=== PATIENT | male | born 1970 | race Caucasian/White ===

== ENCOUNTER 2016-11-16 13:03 | Inpatient (IN) | payer OTHER ==
[~2016-11-16] VITALS: Ht 157.5 cm; Wt 61.2 kg
[~2016-11-16 13:03] MED LIST: ASPI81CT89 PO; CEPH250C16 PO; GABA100C PO; GLIP10TA3 PO; LISI5TAB18 PO; METF1000 PO; SITA50TA3 PO; TRAM50TA94 PO; VITA20002 PO
[2016-11-16 14:04] VITALS: BP 143/72
--- NOTE | 2016-11-16 15:17 | NUR ---
Patient wheelchair assisted to bed 7 at this time.
[2016-11-16] MEDS ORDERED: NACL 0.9% 1,000 ML IV ONE (15:20)
--- NOTE | 2016-11-16 15:21 | NUR ---
45/M presents to ED for evaluation of right foot pain that started yesterday after stepping on a thorn in [place] three weeks ago. Patient states the pain and swelling started yesterday. Patient unable to ambulate d/t pain to right foot. There is redness to right lower extremitity and right foot, swelling noted and open wound to plantar aspect near the 5th digit. No drainage noted. Patient c/o 10/10 pain, stabbing, constant, severe pain. Patient is AOX4, kazakh speaking. Pt is calm and relaxed at this time.
[2016-11-16 15:32] LABS: HEMATOCRIT 38.7 % (36-52); HEMOGLOBIN 12.7 g/dL (12.0-18.0); MEAN CORPUSCULAR HEMOGLOBIN 30 pg (27-31); MEAN CORPUSCULAR HGB CONC 33 g/dL (33-37); MEAN CORPUSCULAR VOLUME 91 fL (80-94); PLATELET COUNT (AUTO) 379 K/uL (140-450); RED BLOOD CELL COUNT(AUTO) 4.27 MIL/uL (4.20-6.10); RED CELL DISTRIBUTION WIDTH 12.9 % (11.6-13.7); WHITE BLOOD COUNT (AUTO) 18.6 K/uL (4.8-10.8)
--- NOTE | 2016-11-16 15:33 | NUR ---
Patient taken to CT via gurney.
[2016-11-16] MEDS ORDERED: PIPERACILLIN/TAZOBACTAM 3.375 GM in DEXTROSE 5% 50 ML IV ONE (15:35)
[2016-11-16] MEDS ORDERED: VANCOMYCIN 1,000 MG in DEXTROSE 5% 250 ML IV ONE (15:35)
[2016-11-16 15:47] LABS: ANION GAP 11.6 (8-16); CALCIUM 8.7 mg/dL (8.5-10.1); CARBON DIOXIDE 27.9 mmol/L (21-32); CREATININE 0.7 mg/dL (0.6-1.3); POTASSIUM 3.5 mmol/L (3.5-5.1)
[2016-11-16] MEDS ORDERED: PIPERACILLIN/TAZOBACTAM 3.375 GM VIAL IV ONE (15:48)
[2016-11-16] MEDS ORDERED: VANCOMYCIN 1,000 MG VIAL ONE (15:48)
[2016-11-16 15:52] LABS: INR 1.1 (0.8-1.2); PARTIAL THROMBOPLASTIN TIME 27.2 secs (22-35.6)
[2016-11-16 15:53] LABS: ALBUMIN 3.1 g/dL (3.4-5.0); TOTAL BILIRUBIN 0.7 mg/dL (0.0-1.0); TOTAL PROTEIN, SERUM 7.5 g/dL (6.4-8.2)
[2016-11-16 15:54] LABS: BAND % (MANUAL) 2 % (0-8); LYMPHOCYTES % (MANUAL) 17 % (20-46); MONOCYTES % (MANUAL) 8 % (5-12); NEUTROPHILS % (MANUAL) 73 (43-65); PLATELET ESTIMATE ADEQUATE
[2016-11-16] MEDS ORDERED: fentaNYL 0.05 MG/ML VIAL IVP ONE (15:55)
--- NOTE | 2016-11-16 16:05 | NUR ---
Patient being evaluated by physician at bedside.
--- NOTE | 2016-11-16 16:06 | NUR ---
Patient's temp noted at 101.[address] Christensen made aware.
[2016-11-16] MEDS ORDERED: IBUPROFEN 800 MG TAB PO ONE (16:10)
--- NOTE | 2016-11-16 16:24 | NUR ---
Patient noted with relief of pain. Pt reports 0/10 pain. Pt expresses feeling much better. Cooling measures applied. Pt is calm and no signs of distress noted.
[2016-11-16] MEDS ORDERED: ONDANSETRON 4 MG/2 ML VIAL IVP PRN (17:10)
[2016-11-16] MEDS ORDERED: DEXTROSE 50% 50 ML SYR IVP PRN (17:10)
[2016-11-16] MEDS ORDERED: ACETAMINOPHEN 325 MG TAB PO PRN (17:10)
--- NOTE | 2016-11-16 17:13 | NUR ---
Patient appears to be resting comfortably in bed.
[2016-11-16] MEDS ORDERED: VANCOMYCIN PER PHARMACY MC PRN ×2 (17:15→17:45)
--- NOTE | 2016-11-16 17:39 | NUR ---
Patient will be admitted to care of Dr. Carter. Admited to Med/Surg. Will go to room 113. Belongings list completed. Report to Tiffanie WATSON. All patient belongings sent with patient.
[2016-11-16 18:25] VITALS: BP 132/73
--- NOTE | 2016-11-16 18:25 | NUR ---
PT BROUGHT UP FROM ER TO ROOM 113, PT AAOX4, RESP EVEN UNLABORED ON O2 2L NC, SKIN WARM DRY, COLOR WNL, 20G IV TO LEFT FA, VANCOMYCIN INFUSING, SITE CLEAR, PT WITH OPEN WOUND ON BOTTOM OF RIGHT FOOT, SWELLING, DISCOLORATION AND FLUID FILLED BLISTER TO RIGHT PINKY TOE, VITALS SIGNS STABLE, PT ORIENTED TO ROOM AND FLOOR, CALL MOHAN WITH IN REACH, BED LOCKED IN LOW POSITION, WILL CONTINUE TO MONITOR
--- NOTE | 2016-11-16 19:20 | NUR ---
REPORT GIVEN TO LOCKSTITCH LINING SETTER, PT IN STABLE CONDITION
--- NOTE | 2016-11-16 19:30 | NUR ---
ADMITTED 45YEARS OLD MALE FROM ER IN 113, FAMILY AT BEDSIDE. SEE NURSING ADMISSION ASSESSMENT AND HISTORY. ORIENTED TO ROOM AND UNIT ROUTINES. PLAN OF CARE DISCUSSED WITH PATIENT AND FAMILY MEMBER AT BEDSIDE, VERBALIZED UNDERSTANDING WELL.
[2016-11-16] MEDS: NACL 0.9% 1,000 ML IV SCH (20:14)
[2016-11-16] MEDS: BLOOD GLUCOSE MONITORING 1 DEV DEV FS SCH (20:51)
[2016-11-16] MEDS ORDERED: PIPERACILLIN/TAZOBACTAM 3.375 GM in DEXTROSE 5% 50 ML IV SCH ×4 (21:00)
--- NOTE | 2016-11-16 21:00 | NUR ---
DR. LIRIANO AT BEDSIDE FOR SURGICAL CONSULT, ORDERS NOTED AND CARRIED. OUT. WOUND CARE DONE. HS SNACK GIVEN.
[2016-11-16] MEDS: INSULIN LISPRO SLIDING SCALE 100 UNITS/ML VIAL SUBQ PRN (21:06)
[2016-11-16 22:21] LABS: APPEARANCE,URINE CLEAR (CLEAR); BILIRUBIN,URINE NEGATIVE (NEGATIVE); BLOOD, URINE NEGATIVE (NEGATIVE); COLOR,URINE YELLOW (YELLOW); LEUKOCYTE ESTERASE ,URINE NEGATIVE (NEGATIVE); NITRITE, URINE NEGATIVE (NEGATIVE); PROTEIN,URINE TRACE (NEGATIVE); UGLUCOSE 2+ (NEGATIVE); UROBILINOGEN,URINE 0.2 EU/dL (0.2 - 1)
[2016-11-16 22:37] LABS: BACTERIA,URINE None Seen /HPF (None Seen); MUCUS,URINE 1+ /LPF (None Seen); RBC,URINE 0-5 (RARE) /HPF (0-5); SQUAMOUS EPITHELIAL CELL,UR None Seen /LPF (0-3 (FEW)); URINE AMORPHOUS URATE 1+ /HPF (None Seen); WBC,URINE 0-5 (RARE) /HPF (0-5)
[2016-11-16] MEDS ORDERED: PNEUMOCOCCAL VACCINE 23 MCG/0.5 ML VIAL IMVAC SCH (22:50)
[2016-11-16] MEDS ORDERED: COMPOSITE DRESSING TP PRN (22:50)
[2016-11-16] MEDS ORDERED: NACL 0.9% IRR 250 ML BOTTLE IR PRN (22:50)
[2016-11-16] MEDS: PIPER/TAZO 3.375GM/D5W PREMIX 50 ML IV SCH (23:27)
--- NOTE | 2016-11-16 23:48 | NUR ---
CONSULT SIGNED. ADVISE NPO AFTER MIDNIGHT, AMENABLE. CALL LIGHT WITHIN REACH.
[2016-11-17 00:11] VITALS: BP 121/69
--- NOTE | 2016-11-17 00:12 | NUR ---
SLEEPING WELL. NO COMPLAINS. CALL LIGHT WITHIN REACH. AFEBRILE.
[2016-11-17] MEDS ORDERED: VANCOMYCIN 1GM/DEXT 5% PREMIX 200 ML IV SCH (01:00)
[2016-11-17] MEDS: VANCOMYCIN 1GM/DEXT 5% PREMIX 200 ML IV SCH ×2 (04:21→17:13)
[2016-11-17] MEDS: NACL 0.9% 1,000 ML IV SCH ×3 (04:33→23:07)
[2016-11-17] MEDS: MORPHINE SULFATE 2 MG/ML SYR IVP PRN ×5 (04:33→23:08)
[2016-11-17] MEDS: BLOOD GLUCOSE MONITORING 1 DEV DEV FS SCH ×4 (05:54→21:00)
[2016-11-17 06:09] LABS: BASOPHILS # (AUTO) 0.1 K/uL (0.00-0.22); EOSINOPHILS # (AUTO) 0.1 K/uL (0-0.4); EOSINOPHILS % (AUTO) 0.8 % (0.0-4.0); HEMATOCRIT 38.4 % (36-52); HEMOGLOBIN 12.7 g/dL (12.0-18.0); LYMPHOCYTES # (AUTO) 1.2 K/uL (2.0-11.5); MEAN CORPUSCULAR HEMOGLOBIN 30 pg (27-31); MEAN CORPUSCULAR HGB CONC 33 g/dL (33-37); MEAN CORPUSCULAR VOLUME 91 fL (80-94); MONOCYTES # (AUTO) 1.3 K/uL (0.8-1.0); MONOCYTES % (AUTO) 9.7 % (1.7-9.3); NEUTROPHILS % (AUTO) 79.5 % (42.2-75.2); PLATELET COUNT (AUTO) 406 K/uL (140-450); RED BLOOD CELL COUNT(AUTO) 4.21 MIL/uL (4.20-6.10); RED CELL DISTRIBUTION WIDTH 13.2 % (11.6-13.7)
[2016-11-17 06:40] LABS: CALCIUM 8.4 mg/dL (8.5-10.1); CARBON DIOXIDE 30.2 mmol/L (21-32); CREATININE 0.5 mg/dL (0.6-1.3); POTASSIUM 3.2 mmol/L (3.5-5.1)
[2016-11-17 07:03] LABS: WHITE BLOOD COUNT (AUTO) 13.7 K/uL (4.8-10.8)
--- NOTE | 2016-11-17 07:16 | NUR ---
ENDORSED CARE AT BEDSIDE WITH MAMI WATSON, PATIENT IN STABLE CONDITION.
--- NOTE | 2016-11-17 07:16 | NUR ---
RECEIVED PT AWAKE AND SITTING ON BED AAOX4 GUINEAN SPEAKING WITH NO S/S OF RESPIRATORY DISTRESS OR DISCOMFORT. PT COMPLAINED OF PAIN, WILL ADMINISTER NORCO. WITH IV ACCESS ON LEFT FOREARM G20 INFUSING FLUIDS WELL. WITH DRY AND INTACT DRESSING AT RIGHT FOOT. DISCUSSED PLAN OF CARE INTERPRETED BY KAVITHA NAVA, PT VERBALIZED UNDERSTANDING. SAFETY PRECAUTIONS ENFORCED. CALL LIGHT WITHIN REACH, WILL CONTINUE TO MONITOR.
[2016-11-17] MEDS: HYDROcodone/APAP 5/325 MG 1 TAB TAB PO PRN ×2 (07:49→13:12)
[2016-11-17] MEDS: PIPER/TAZO 3.375GM/D5W PREMIX 50 ML IV SCH ×2 (07:49→15:13)
[2016-11-17 08:00] VITALS: BP 142/77
[2016-11-17] MEDS: ENOXAPARIN 40 MG/0.4 ML SYR SUBQ SCH (08:06)
--- NOTE | 2016-11-17 08:06 | NUR ---
LOVENOX WITHHELD DUE TO SCHEDULED DEBRIDEMENT
[2016-11-17] MEDS ORDERED: POTASSIUM CHLORIDE 10 MEQ TABER PO SCH (09:00)
--- NOTE | 2016-11-17 10:16 | NUR ---
PT LEFT UNIT TO OR FOR DEBRIDEMENT ACCOMPANIED BY OR NURSES ON A BED IN STABLE CONDITION
--- NOTE | 2016-11-17 10:24 | NUR ---
PATIENT HAS BEEN SCREENED AND CATEGORIZED HIGH NUTRITION RISK. PATIENT WILL BE SEEN WITHIN 1-2 DAYS OF ADMISSION. 11/17/16-11/18/[address]
--- NOTE | 2016-11-17 10:47 | NUR ---
PT BACK FROM OR, DEBRIDEMENT IS DELAYED, PER DR LIRIANO WILL PERFORM DEBRIDEMENT LATE AFTERNOON
--- NOTE | 2016-11-17 11:49 | NUR ---
INSULIN COVERAGE NOT GIVEN, PT NPO
--- NOTE | 2016-11-17 12:32 | NUR ---
11/17/16 RD INITIAL ASSESSMENT COMPLETED PLEASE REFER TO NUTRITION ASSESSMENT UNDER CARE ACTIVITY FOR ESTIMATED NUTRITIONAL NEEDS. 1. WHEN MEDICALLY FEASIBLE, INITIATE PO DIET: 75G CCHO/MEAL (HIGH CARB) DIET 2. RD TO FOLLOW-UP 2-3 DAYS; HIGH RISK ALDEN JORDAN, SANJAY
--- NOTE | 2016-11-17 12:41 | NUR ---
CM NOTE INITIAL REVIEW SENT TO [facility] FAX# [phone] PH# TARAN [phone]
[2016-11-17] MEDS: NACL 0.9% IRR 250 ML BOTTLE IR SCH (13:17)
[2016-11-17] MEDS: COMPOSITE DRESSING TP SCH (13:18)
--- NOTE | 2016-11-17 13:45 | NUR ---
PT AWAKE SITTING ON BED WITH DAUGHTER AT BEDSIDE. NO S/S OF DISTRESS, WILL CONTINUE TO MONITOR
--- NOTE | 2016-11-17 15:10 | NUR ---
WOUND CARE EVALUATION NOTES: REASON FOR EVALUATION: RIGHT FOOT DFU COMPLETE SKIN ASSESSMENT DONE ON THIS 45 Y/O MALE PATIENT FROM HOME TO [facility], WITH INITIAL DIAGNOSIS OF OSTEOMYELITIS/CELLULITIS OF FOOT. PAST MEDICAL HISTORY INCLUDE DM, ASTHMA AND HYPERTENSION. ALL ABOVE INFORMATION WAS OBTAINED FROM THE ADMISSION H&P. LABS ARE WBC 13.7, H/H 12.7/38.4, GLUCOSE 175, ALBUMIN 3.1, PT/INR 10.0/1.1 AND PTT 27.2. CURRENT MEDS INCLUDE ENOXAPARIN, VANCOMYCIN, ZOSYN, INSULIN, MORPHINE AND NORCO. PATIENT IS AWAKE, ALERT, ORIENTED TO PERSON, PLACE, DATE AND TIME. SKIN WARM TO TOUCH WNL, TOENAILS ARE SLIGHTLY THICKENED, NO EDEMA, WITH HAIR GROWTH AND +3 BILATERAL PEDAL PULSES. URINE AND BOWEL CONTINENT, ABLE TO AMBULATE TO THE RESTROOM CLAIMED. ABLE TO TURN SELF WITHOUT ASSISTANCE. INITIAL PLAN OF CARE AND PRESSURE PREVENTIVE MEASURES DISCUSSED, ABLE TO VERBALIZE UNDERSTANDING. INTEGUMENTARY: RIGHT LATERAL PLANTAR FOOT - DFU - 100% YELLOW RIGHT 5TH DIGIT - PURPLISH DISCOLORATION, COOL TO TOUCH. UNABLE TO MOVE TOE BUT ABLE TO FEEL WHEN TOUCH. RIGHT BASE OF 4TH DIGIT - PURPLISH DISCOLORATION. ABLE TO MOVE TOE AND ABLE TO FEEL WHEN TOUCH RECOMMENDATIONS: -WILL KEEP IT DRY FOR NOW BY COVERING WITH DRY DRESSING. WILL REASSESS POST DEBRIDEMENT. PATIENT IS SCHEDULED FOR DEBRIDEMENT TODAY BY DR. LIRIANO.
--- NOTE | 2016-11-17 15:30 | NUR ---
PT SEEN BY WOUND CARE NURSE.
[2016-11-17 16:00] VITALS: BP 138/79
--- NOTE | 2016-11-17 17:15 | NUR ---
DUE VANCOMYCIN GIVEN PER PHARMACY
[2016-11-17] MEDS ORDERED: fentaNYL 0.05 MG/ML VIAL ONE (18:25)
[2016-11-17] MEDS ORDERED: MIDAZOLAM 2 MG/2 ML VIAL ONE (18:25)
[2016-11-17] MEDS ORDERED: PROPOFOL 200 MG/20 ML VIAL IV ONE (18:28)
--- NOTE | 2016-11-17 18:28 | NUR ---
PT LEFT UNIT TO OR ON A BED ACCOMPANIED BY OR NURSES IN STABLE CONDITION
[2016-11-17] MEDS ORDERED: BUPIVACAINE-MPF/EPI 0.25% 30 ML VIAL INJ ONE (18:39)
[2016-11-17] MEDS ORDERED: BUPIVACAINE-MPF 0.25% 30 ML VIAL INJ ONE (18:40)
[2016-11-17] MEDS ORDERED: HYDROmorphone 1 MG/ML AMP IVP PRN (19:00)
[2016-11-17] MEDS ORDERED: BLOOD GLUCOSE MONITORING 1 DEV DEV FS SCH (19:00)
[2016-11-17] MEDS ORDERED: ONDANSETRON 4 MG/2 ML VIAL IVP PRN (19:00)
--- NOTE | 2016-11-17 19:32 | NUR ---
ENDORSED PT TO ANGELIKA MEAT PASSER IN STABLE CONDITION FOR CONTINUITY OF CARE
--- NOTE | 2016-11-17 19:55 | NUR ---
RECD. FROM OR VIA BED, AWAKE, A/OX4., RESPIRATION EVEN AND UNLABORED. IV OF NS AT 100 ML/HR INFUSING, LEFT FOREARM G20. S/P DEBRIDEMENT OF RIGHT DIABETIC FOOT INFECTION, WITH FASCIOTOMY REPORTED BY OR NURSE. INCISION COVERED WITH DRESSING AND RADHA WRAPPED BANDAGE, DRY AND INTACT. RIGHT TOES, WITH POSITIVE MOVEMENT/SENSATION AND GOOD CAPILLARY REFILL. DENIES PAIN 0/10. VS STABLE. FAMILY AT THE BEDSIDE.
--- NOTE | 2016-11-17 20:20 | NUR ---
ELEVATED RIGHT FOOT ON PILLOWS.
--- NOTE | 2016-11-17 21:00 | NUR ---
Patient's Plan of Care was discussed and reviewed with PLANT TOUR GUIDE: ERWIN
[2016-11-17] MEDS ORDERED: MORPHINE SULFATE 4 MG/ML SYR IVP PRN (22:50)
--- NOTE | 2016-11-17 23:00 | NUR ---
TOLERATED WELL SANDWICH AND APPLE JUICE, NO N/V NOTED.
[2016-11-18] MEDS: PIPER/TAZO 3.375GM/D5W PREMIX 50 ML IV SCH ×3 (00:10→16:30)
[2016-11-18] MEDS: VANCOMYCIN 1GM/DEXT 5% PREMIX 200 ML IV SCH ×2 (01:00→10:24)
--- NOTE | 2016-11-18 02:00 | NUR ---
PT SLEEPING WELL. NO S/S OF ANY DISCOMFORT NOTED.
[2016-11-18] MEDS: NACL 0.9% 1,000 ML IV SCH ×2 (03:53→09:43)
--- NOTE | 2016-11-18 04:00 | NUR ---
SLEEPING COMFORTABLY, VS REMAIN STABLE.
[2016-11-18 06:49] LABS: BASOPHILS % (AUTO) 0.3 % (0.0-2.0); EOSINOPHILS # (AUTO) 0.3 K/uL (0-0.4); EOSINOPHILS % (AUTO) 1.6 % (0.0-4.0); HEMATOCRIT 34.9 % (36-52); HEMOGLOBIN 11.7 g/dL (12.0-18.0); LYMPHOCYTES # (AUTO) 1.5 K/uL (2.0-11.5); LYMPHOCYTES % (AUTO) 9.3 % (20.5-51.1); MEAN CORPUSCULAR HEMOGLOBIN 30 pg (27-31); MEAN CORPUSCULAR HGB CONC 34 g/dL (33-37); MEAN CORPUSCULAR VOLUME 91 fL (80-94); MONOCYTES # (AUTO) 1.4 K/uL (0.8-1.0); MONOCYTES % (AUTO) 8.9 % (1.7-9.3); NEUTROPHILS # (AUTO) 12.8 K/uL (1.8-7.7); NEUTROPHILS % (AUTO) 79.9 % (42.2-75.2); PLATELET COUNT (AUTO) 399 K/uL (140-450); RED BLOOD CELL COUNT(AUTO) 3.85 MIL/uL (4.20-6.10); RED CELL DISTRIBUTION WIDTH 12.9 % (11.6-13.7)
[2016-11-18] MEDS: BLOOD GLUCOSE MONITORING 1 DEV DEV FS SCH ×3 (06:58→17:09)
[2016-11-18] MEDS: INSULIN LISPRO SLIDING SCALE 100 UNITS/ML VIAL SUBQ PRN ×3 (06:59→17:10)
--- NOTE | 2016-11-18 07:00 | NUR ---
DID HIS AM CARE. CONDITION REMAIN STABLE. WILL ENDORSE TO AM NURSE FOR CONTINUITY OF CARE;
[2016-11-18] MEDS: MORPHINE SULFATE 4 MG/ML SYR IVP PRN ×2 (07:15→11:21)
[2016-11-18 07:26] LABS: ANION GAP 15.7 (8-16); CARBON DIOXIDE 23.2 mmol/L (21-32); CREATININE 0.6 mg/dL (0.6-1.3); POTASSIUM 3.9 mmol/L (3.5-5.1)
[2016-11-18 08:00] VITALS: BP 130/72
--- NOTE | 2016-11-18 08:00 | NUR ---
RECEIVED REPORT FROM ANGELIKA WATSON FOR CONTINUITY OF CARE PATIENT AWAKE A/OX4 . NO S/S OF RESP DISTRESS NOTED , NO COMPLAIN OF PAIN ,JUST RECEIVED PAIN MEDS AND PAIN RELIVED. RIGHT FOOT WRAPPED WITH RADHA WRAP S/P DEBRIDEMENT . IV SITE LFA GAUGE 22 INTACT AND PATENT IVF INFUSING WELL. PLAN OF CARE DISCUSSED WITH THE PATIENT VITALS STABLE WILL CONTINUE TO MONITOR.
--- NOTE | 2016-11-18 09:00 | NUR ---
DUE MEDS GIVEN TOLERATED WELL. ATE BREAKFAST GOOD APPETITE , ASSIST PATIENT TO BATHROOM NON-WEIGHT BEARING.
[2016-11-18] MEDS ORDERED: LOV40I SUBQ (09:25)
[2016-11-18] MEDS ORDERED: ZOS3.375I IV (09:25)
[2016-11-18] MEDS ORDERED: ACET-9525 PO (09:25)
[2016-11-18] MEDS ORDERED: ACET-1182 PO (09:25)
[2016-11-18] MEDS: ENOXAPARIN 40 MG/0.4 ML SYR SUBQ SCH (09:49)
--- NOTE | 2016-11-18 10:15 | NUR ---
DR LIRIANO CHANGE DRESSING ,NO DRAINAGE NOTED AT THIS TIME.
--- NOTE | 2016-11-18 10:33 | NUR ---
FAXED CONCURRENT REVIEW TO [facility] [phone] PHONE TARAN [phone] SPOKE WITH TARAN AND INFORMED HER OF ORDER FOR SNF. SHE SAID ALSO TRY [facility] BACKUP. DIAZ SENT INFORMATION.
--- NOTE | 2016-11-18 12:10 | NUR ---
BLOOD SUGAR 289 SLIDING SCALE COVERAGE 6 UNITS HUMALOG GIVEN.
--- NOTE | 2016-11-18 12:14 | NUR ---
SS NOTE: PER MARCELL FROM [facility] ([phone]), PT CAN GO TO ROOM 204A ANYTIME AFTER 1600. Addendum: 11/18/16 at 1241 by Nelsy Swartz SS I SPOKE WITH PT BEDSIDE WITH SHIRLEY CELESTIN AND KAVITHA BARBER TO TRANSLATE, PT IS IN AGREEMENT WITH GOING TO [facility] UPON DISCHARGE.
--- NOTE | 2016-11-18 13:16 | NUR ---
CALLED [facility] AND SET UP [facility]SPORT FOR 5:30P.Tong SANTA FROM [facility] [id number]. TYLER WATSONJEWEL BLOCKER AND SAWYER NURSE AWARE.
[2016-11-18] MEDS: COMPOSITE DRESSING TP SCH (13:24)
[2016-11-18] MEDS: NACL 0.9% IRR 250 ML BOTTLE IR SCH (13:24)
[2016-11-18 13:25] VITALS: BP 131/70
[2016-11-18 16:00] VITALS: BP 131/70
[2016-11-18] MEDS: HYDROcodone/APAP 5/325 MG 1 TAB TAB PO PRN (16:30)
--- NOTE | 2016-11-18 16:30 | NUR ---
BLOOD SUGAR 278 SLIDING SCALE COVERAGE 6 UNITS HUMALOG GIVEN , DISCHARGE INSTRUCTION GIVEN VERBALIZED UNDERSTANDING. VITALS STABLE
--- NOTE | 2016-11-18 18:00 | NUR ---
DISCHARGE INSTRUCTION GIVEN VERBALIZED UNDERSTANDING , D/C PATIENT VIA AMBULANCE TO [facility], STABLE CONDITION UPON DISCHARGE.
== END 2016-11-18 18:30 | DRG 314 ==
LOC: MED 13:03 → MTU 17:14 → MED 17:39
PROVIDERS: ADMIT Hospitalist; ATTEND Hospitalist
PROC: 0Q9N0ZZ Drainage of Right Metatarsal, Open Approach (ICD-10-PCS; 2016-11-17)
PROC: 0J8Q0ZZ Division of Right Foot Subcutaneous Tissue and Fascia, Open Approach (ICD-10-PCS; 2016-11-17)
PROC: 0JBQ0ZZ Excision of Right Foot Subcutaneous Tissue and Fascia, Open Approach (ICD-10-PCS; principal; 2016-11-17 18:45)
DX: E11.69 Type 2 diabetes mellitus with other specified complication (principal); M86.8X7 Other osteomyelitis, ankle and foot; M72.6 Necrotizing fasciitis; E11.628 Type 2 diabetes mellitus with other skin complications; E87.1 Hypo-osmolality and hyponatremia; L03.115 Cellulitis of right lower limb; L08.89 Other specified local infections of the skin and subcutaneous tissue; L02.611 Cutaneous abscess of right foot; B96.89 Other specified bacterial agents as the cause of diseases classified elsewhere; I10 Essential (primary) hypertension; J45.909 Unspecified asthma, uncomplicated; E87.6 Hypokalemia; Z83.3 Family history of diabetes mellitus
CPT/HCPCS: 36415; 71010; 73630; 73700; 80048; 80053; 80202; 81001; 82948; 83880; 84484; 85025; 85610; 85730; 87040; 87070; 87075; 87081; 87186; 87205; 93005; 93925; 96365; 96368; 96375; 99285; J1650; J1815; J2250; J2270; J2543; J2704; J3010; J3370; J3490; J7030; Q0092

== ENCOUNTER 2016-11-25 15:47 | Inpatient (IN) | payer OTHER ==
[~2016-11-25] VITALS: Ht 157.5 cm; Wt 59.9 kg
[~2016-11-25 15:47] MED LIST changes: +ACET-1182 PO; +ACET-9525 PO; -CEPH250C16 PO; -GABA100C PO; -LISI5TAB18 PO; +LOV40I SUBQ; -SITA50TA3 PO; -TRAM50TA94 PO; -VITA20002 PO; +ZOS3.375I IV
[2016-11-25 16:15] VITALS: BP 119/72
--- NOTE | 2016-11-25 19:37 | NUR ---
PT TAKEN TO OF
--- NOTE | 2016-11-25 19:38 | NUR ---
46Y M BIB DAUGHT (ADELA) BY WHEELCHAIR C/O RIGHT PINKY TOE INFECTION S/P MANUAL WOOD CHIP REMOVAL BY PT. PT STATES HE WAS IN [place] WHEN A PIECE OF WOOD CHIP GOT STUCK INTO HIS FOOT X 1 MONTH AGO. HE HAS HX DM, BS 190 AT TRIAGE. 24G IV ESTABLISHED BY [facility] TO THE RIGHT HAND. PT REQUESTING ABX TX WHILE HE WAITS FOR RIGHT PINKY TOE AMPUTATION. PT DENIES ANY N/V/D/, CP, OR SOB AT THE MOMENT. NKA 02/24 PAIN
--- NOTE | 2016-11-25 20:14 | NUR ---
Dr. Pizarro evaluating patient
[2016-11-25] MEDS ORDERED: VANCOMYCIN 1GM/DEXT 5% PREMIX 200 ML IV ONE ×2 (20:15→22:00)
[2016-11-25] MEDS ORDERED: VANCOMYCIN PER PHARMACY MC PRN ×2 (20:15→20:25)
[2016-11-25] MEDS ORDERED: PIPERACILLIN/TAZOBACTAM 3.375 GM in DEXTROSE 5% 50 ML IV ONE (20:15)
--- NOTE | 2016-11-25 20:15 | NUR ---
Pt report given to DAMI WATSON. Transfer of care at this time.
[2016-11-25] MEDS ORDERED: ACETAMINOPHEN 325 MG TAB PO PRN (20:25)
--- NOTE | 2016-11-25 20:30 | NUR ---
PT MOVED TO BED 6
[2016-11-25 20:33] LABS: BASOPHILS # (AUTO) 0.1 K/uL (0.00-0.22); BASOPHILS % (AUTO) 0.6 % (0.0-2.0); EOSINOPHILS # (AUTO) 0.2 K/uL (0-0.4); EOSINOPHILS % (AUTO) 1.6 % (0.0-4.0); HEMATOCRIT 37.8 % (36-52); HEMOGLOBIN 12.3 g/dL (12.0-18.0); LYMPHOCYTES # (AUTO) 1.8 K/uL (2.0-11.5); LYMPHOCYTES % (AUTO) 18.1 % (20.5-51.1); MEAN CORPUSCULAR HEMOGLOBIN 30 pg (27-31); MEAN CORPUSCULAR HGB CONC 32 g/dL (33-37); MEAN CORPUSCULAR VOLUME 92 fL (80-94); MONOCYTES # (AUTO) 0.6 K/uL (0.8-1.0); MONOCYTES % (AUTO) 6.3 % (1.7-9.3); NEUTROPHILS % (AUTO) 73.4 % (42.2-75.2); PLATELET COUNT (AUTO) 712 K/uL (140-450); RED BLOOD CELL COUNT(AUTO) 4.14 MIL/uL (4.20-6.10); RED CELL DISTRIBUTION WIDTH 12.6 % (11.6-13.7); WHITE BLOOD COUNT (AUTO) 9.7 K/uL (4.8-10.8)
[2016-11-25 20:45] LABS: ANION GAP 10.3 (8-16); CALCIUM 9.1 mg/dL (8.5-10.1); CARBON DIOXIDE 30.9 mmol/L (21-32); CREATININE 0.8 mg/dL (0.6-1.3); POTASSIUM 4.2 mmol/L (3.5-5.1)
[2016-11-25 20:51] LABS: ALBUMIN 2.8 g/dL (3.4-5.0); TOTAL BILIRUBIN 0.3 mg/dL (0.0-1.0)
[2016-11-25] MEDS: PIPERACILLIN/TAZOBACTAM 2.25 GM in DEXTROSE 5% 50 ML IV SCH (21:00)
[2016-11-25 21:11] LABS: INR 1.2 (0.8-1.2)
--- NOTE | 2016-11-25 21:18 | NUR ---
Pt report given to JOELLE WATSON. Transfer of care at this time.WILL DOCUMENT REASESS TIME FOR BHARATHI.
[2016-11-25] MEDS ORDERED: PIPERACILLIN/TAZOBACTAM 3.375 GM VIAL IV ONE (21:21)
--- NOTE | 2016-11-25 21:25 | NUR ---
Patient will be admitted to care of [facility]. Admited to MED/SURG. Will go to [id number]. Belongings list completed. Report to .
--- NOTE | 2016-11-25 21:30 | NUR ---
RECEIVED FROM ER PER VALE AWAKE AND ALERT. NO SOB. DENIES ANY PAIN AT THIS TIME. ABLE TO UNDERSTAND A LITTLE OF CYMRAES. A/O X 4. ROM X 4. CLEAR SPEECH. DX. OF RIGHT TOE GANGRENE. NOTED BLACK IN COLOR. ORIENTED TO CALL LIGHT FOR HELP AND USE CARE PLANS DISCUSSED WITH HIM IN [place]. PT. BEEN HERE STATED AND KNOWS THE IN AND OUT OF USING CALL LIGHT. TV ON AND ABLE TO USE CALL LIGHT WELL. IVF SITE TO RIGHT HAND #24. AFEBRILE.
[2016-11-25] MEDS ORDERED: VANCOMYCIN 1,000 MG VIAL ONE (22:37)
[2016-11-25] MEDS: MORPHINE SULFATE 2 MG/ML SYR IVP PRN (22:44)
--- NOTE | 2016-11-25 22:45 | NUR ---
BLOOD SUGAR CHECK PER FINGERSTICK WAS 217. COVERED WITH HUMALOG INSULIN ORDERED. VERBALIZES WELL. CALL LIGHT WITH IN REACH. UNDERSTANDS A LITTLE BIT OF LATVIAN. ABLE TO VERBALIZE SIMPLE NEEDS. AFEBRILE.
[2016-11-25] MEDS: BLOOD GLUCOSE MONITORING 1 DEV DEV FS SCH (22:46)
[2016-11-25] MEDS: NACL 0.9% 1,000 ML IV SCH (22:46)
[2016-11-25] MEDS: INSULIN LISPRO SLIDING SCALE 100 UNITS/ML VIAL SUBQ PRN (22:47)
[2016-11-25 23:56] VITALS: BP 119/72
--- NOTE | 2016-11-26 01:00 | NUR ---
5TH TOE RIGHT FOOT OPEN WOUND CLEANSED WITH NS AND KEPT IT OPEN TO AIR. PT. STATED THAT HE GOT A WOOD SPLINTER IN [place] AND THEN IT JUST BECAME BLACK IN COLOR. PT. DIABETIC. HEALTH TEACHING ABOUT DIABETES DISCUSSED WITH HIM.
--- NOTE | 2016-11-26 01:33 | NUR ---
SLEEPING AT THIS TIME . CALL LIGHT WITH IN REACH. NO SOB. NO RESTLESSNESS AT THIS TIME.
[2016-11-26] MEDS ORDERED: PIPERACILLIN/TAZOBACTAM 2.25 GM VIAL IV ONE (04:44)
[2016-11-26] MEDS: PIPERACILLIN/TAZOBACTAM 2.25 GM in DEXTROSE 5% 50 ML IV SCH (04:51)
[2016-11-26] MEDS: NACL 0.9% 1,000 ML IV SCH ×3 (06:05→16:23)
[2016-11-26] MEDS: BLOOD GLUCOSE MONITORING 1 DEV DEV FS SCH ×4 (06:05→20:24)
[2016-11-26] MEDS: INSULIN LISPRO SLIDING SCALE 100 UNITS/ML VIAL SUBQ PRN ×4 (06:06→20:28)
[2016-11-26 06:09] LABS: BASOPHILS # (AUTO) 0.1 K/uL (0.00-0.22); EOSINOPHILS # (AUTO) 0.2 K/uL (0-0.4); EOSINOPHILS % (AUTO) 2.4 % (0.0-4.0); HEMOGLOBIN 11.6 g/dL (12.0-18.0); LYMPHOCYTES # (AUTO) 1.8 K/uL (2.0-11.5); MEAN CORPUSCULAR HEMOGLOBIN 31 pg (27-31); MEAN CORPUSCULAR HGB CONC 34 g/dL (33-37); MEAN CORPUSCULAR VOLUME 90 fL (80-94); MONOCYTES # (AUTO) 0.9 K/uL (0.8-1.0); MONOCYTES % (AUTO) 9.7 % (1.7-9.3); NEUTROPHILS # (AUTO) 5.8 K/uL (1.8-7.7); NEUTROPHILS % (AUTO) 65.9 % (42.2-75.2); PLATELET COUNT (AUTO) 635 K/uL (140-450); RED BLOOD CELL COUNT(AUTO) 3.77 MIL/uL (4.20-6.10); RED CELL DISTRIBUTION WIDTH 12.6 % (11.6-13.7); WHITE BLOOD COUNT (AUTO) 8.8 K/uL (4.8-10.8)
[2016-11-26 06:31] LABS: ALBUMIN 2.4 g/dL (3.4-5.0); ANION GAP 11.4 (8-16); CALCIUM 8.7 mg/dL (8.5-10.1); CARBON DIOXIDE 28.9 mmol/L (21-32); CREATININE 0.7 mg/dL (0.6-1.3); POTASSIUM 4.3 mmol/L (3.5-5.1); TOTAL BILIRUBIN 0.3 mg/dL (0.0-1.0); TOTAL PROTEIN, SERUM 6.9 g/dL (6.4-8.2)
--- NOTE | 2016-11-26 07:43 | NUR ---
SLEPT WELL THIS SHIFT. ENDORSED TO THE NEXT RN FOR CONTINUITY OF CARE AWAKE AND ALERT.
--- NOTE | 2016-11-26 07:44 | NUR ---
PT AWAKE AND ALERT AND ORIENTED X4, NO SIGNS OF ACUTE DISTRESS, BREATHING EVEN AND UNLABORED BILATERALLY, BOWEL SOUNDS ACTIVE IN ALL 4 QUADRANTS NO ABDOMINAL DISTENTION, AMBULATORY WITH ASSIST, BOWEL AND BLADDER CONTINENCE, SKIN INTACT WITH BLACK RT 5TH TOE WITH WOUND, IV LINE PATENT WITH NO SIGNS OF REDNESS, BED IN LOW POSITION WITH BILATERAL HALF SIDE RAILS UP, CALL LIGHT WITHIN REACH.
[2016-11-26 08:00] VITALS: BP 135/76
[2016-11-26] MEDS ORDERED: VANCOMYCIN 1GM/DEXT 5% PREMIX 200 ML IV SCH (08:00)
[2016-11-26] MEDS ORDERED: VANCOMYCIN 1,000 MG in NACL 0.9% 250 ML IV SCH (08:00)
[2016-11-26] MEDS: ASPIRIN 81 MG TAB.CHEW PO SCH (08:05)
--- NOTE | 2016-11-26 09:53 | NUR ---
PATIENT HAS BEEN SCREENED AND CATEGORIZED HIGH NUTRITION RISK. PATIENT WILL BE SEEN WITHIN 1-2 DAYS OF ADMISSION. 11/26/16-11/27/[address]
--- NOTE | 2016-11-26 11:20 | NUR ---
CM NOTE INITIAL REVIEW SENT TO [facility] FAX# [phone] PH# TARAN [phone]
[2016-11-26] MEDS: PIPER/TAZO 3.375GM/D5W PREMIX 50 ML IV SCH ×2 (12:42→20:25)
[2016-11-26] MEDS: NACL 0.9% IRR 250 ML BOTTLE IR SCH (12:46)
[2016-11-26] MEDS ORDERED: PIPER/TAZO 2.25GM/D5W PREMIX 50 ML IV SCH (13:00)
[2016-11-26 15:52] VITALS: BP 137/85
[2016-11-26] MEDS: VANCOMYCIN 1GM/DEXT 5% PREMIX 200 ML IV SCH (16:07)
--- NOTE | 2016-11-26 18:40 | NUR ---
SPOKE WITH DR CAMPOVERDE TO CLARIFY DIET ORDER, WAS TOLD TO PAGE DR LIRIANO. PAGED DR LIRIANO, WILL AWAIT RESPONSE.
--- NOTE | 2016-11-26 19:01 | NUR ---
PT AWAKE AND ALERT, NO SIGNS OF ACUTE DISTRESS, BREATHING EVEN AND UNLABORED BILATERALLY, WILL ENDORSE TO COMPUTER SCIENCE INTERN NURSE FOR CONTINUITY OF CARE.
--- NOTE | 2016-11-26 19:06 | NUR ---
PT AWAKE AND ALERT, NO SIGNS OF ACUTE DISTRESS. ENDORSED TO SOCK EXAMINER NURSE FOR CONTINUITY OF CARE.
--- NOTE | 2016-11-26 19:30 | NUR ---
RECEIVED FROM AM RN IN BED WATCHING TV. NO SOB. DENIES PAIN AT THIS TIME. A/O X 4. DX. OF GANGRENE TO 5TH TOE RIGHT FOOT. ABLE TO VERBALIZE NEEDS WELL. FAMILY MEMBER IN VISITING. NO COMPLAINTS DONE. IVF SITE TO RFA#[address] AND PATENT. CALL LIGHT WITH IN REACH. CARE PLAN FOR THE NIGHT DISCUSSED WITH PT.
--- NOTE | 2016-11-26 19:45 | NUR ---
TALKED WITH MD LIRIANO ON THE PHONE TO INFORM HIM THAT PT. ATE FOR DINNER AROUND 1800 RT Jorge ESQUIVEL CALLED EARLIER THAT HE IS COMING AT 2100 TO DO AN AMPUTATION .
--- NOTE | 2016-11-26 20:00 | NUR ---
NEW IVF LINE INSERTED BY [facility] NURSE JODY TO RIGHT FOREARM #22 RT PREVIOUS LINE DISCONTINUED BY PT.
--- NOTE | 2016-11-26 21:15 | NUR ---
OH WITH NEW ORDERS RE:DIET AND TO OBTAIN CONSENT FOR AMPUTATION OF RIGHT FOOT 5TH TOE WITH DEBRIDEMENT.
--- NOTE | 2016-11-26 21:52 | NUR ---
PT. SEEN BY HAYLEY ESQUIVEL AND AMPUTATION FOR RIGHT 5TH TOE AND DEBRIDEMENT PLANS FOR TOMORROW.
[2016-11-27] MEDS: VANCOMYCIN 1GM/DEXT 5% PREMIX 200 ML IV SCH ×3 (00:16→09:30)
[2016-11-27] MEDS: NACL 0.9% IRR 250 ML BOTTLE IR SCH ×2 (00:21→13:00)
[2016-11-27 00:47] VITALS: BP 121/68
--- NOTE | 2016-11-27 00:54 | NUR ---
SLEEPING AT THIS TIME. AWARE THAT HE IS NPO . DAUGHTER ADVISED HIM EARLIER IN [place] ABOUT BEING NO FOOD AT THIS TIME RT OH, WILL AMPUTATE RIGHT 5TH TOE AND DEBRIDEMENT TOMORROW.
[2016-11-27] MEDS: NACL 0.9% 1,000 ML IV SCH ×3 (02:23→22:23)
[2016-11-27] MEDS: MORPHINE SULFATE 2 MG/ML SYR IVP PRN ×4 (03:47→20:13)
--- NOTE | 2016-11-27 04:54 | NUR ---
PT. SLEEPING. NO RESTLESSNESS . RIGHT FOREARM#22 IVF SITE INTACT ANDNO INFILTRATION .
[2016-11-27] MEDS: PIPER/TAZO 3.375GM/D5W PREMIX 50 ML IV SCH ×3 (05:32→21:43)
[2016-11-27] MEDS: BLOOD GLUCOSE MONITORING 1 DEV DEV FS SCH ×5 (06:23→21:42)
--- NOTE | 2016-11-27 07:32 | NUR ---
PT. REMINDED NPO. "OK" ENDORSED TO THE NEXT RN FOR CONTINUITY OF CARE AWAKE AND ALERT. VERBALIZING WELL. YEMENI SPEAKING.
--- NOTE | 2016-11-27 07:35 | NUR ---
REPORT RECEIVED FROM DIRECTOR BUILDING, PT AWAKE ALERT, RESTING QUIETLY IN NAD, RESP EVEN UNLABORED ON ROOM AIR, R PINKY TOE BLACK, WITH OPEN WOUNDS, OPEN TO AIR, REQUESTS PAIN MED, WILL MEDICATE PER ORDER, PLAN OF CARE REVIEWED, PT AWARE OF NPO, CALL MOHAN WITHIN REACH, OTHER SAFETY MEASURES MET.
[2016-11-27 07:59] VITALS: BP 145/81
[2016-11-27 08:11] LABS: BASOPHILS # (AUTO) 0.1 K/uL (0.00-0.22); BASOPHILS % (AUTO) 0.7 % (0.0-2.0); EOSINOPHILS # (AUTO) 0.2 K/uL (0-0.4); HEMATOCRIT 35.8 % (36-52); HEMOGLOBIN 11.8 g/dL (12.0-18.0); LYMPHOCYTES # (AUTO) 1.6 K/uL (2.0-11.5); LYMPHOCYTES % (AUTO) 21.5 % (20.5-51.1); MEAN CORPUSCULAR HEMOGLOBIN 30 pg (27-31); MEAN CORPUSCULAR HGB CONC 33 g/dL (33-37); MEAN CORPUSCULAR VOLUME 91 fL (80-94); MONOCYTES # (AUTO) 0.7 K/uL (0.8-1.0); MONOCYTES % (AUTO) 8.8 % (1.7-9.3); PLATELET COUNT (AUTO) 698 K/uL (140-450); RED BLOOD CELL COUNT(AUTO) 3.95 MIL/uL (4.20-6.10); RED CELL DISTRIBUTION WIDTH 12.8 % (11.6-13.7); WHITE BLOOD COUNT (AUTO) 7.6 K/uL (4.8-10.8)
[2016-11-27] MEDS: ASPIRIN 81 MG TAB.CHEW PO SCH (09:00)
[2016-11-27 09:18] LABS: ANION GAP 12.4 (8-16); CARBON DIOXIDE 27.6 mmol/L (21-32); CREATININE 0.8 mg/dL (0.6-1.3)
--- NOTE | 2016-11-27 09:30 | NUR ---
PT AND FAMILY INFORMED OF SCHEDULE FOR SURGERY AT 11AM, PREOP CHECK LIST DONE, PT REMAINS NPO SINCE LAST NIGHT, ALL CLOTHING AND JEWELRY RMOVED. CALL MOHAN WITHIN REACH, FAMILY AT BEDSIDE, WILL CONTINUE TO MONITOR
--- NOTE | 2016-11-27 10:42 | NUR ---
PT TO OR IN HOSPITAL BED AT THIS TIME.
[2016-11-27] MEDS ORDERED: LABETALOL 100 MG/20 ML VIAL IVP ONE (11:33)
[2016-11-27] MEDS ORDERED: MIDAZOLAM 2 MG/2 ML VIAL ONE (11:47)
[2016-11-27] MEDS ORDERED: KETAMINE 500 MG/5 ML VIAL ONE (11:47)
[2016-11-27] MEDS ORDERED: LIDOCAINE 1% 50 ML ONE (11:48)
[2016-11-27] MEDS ORDERED: HYDROmorphone 1 MG/ML AMP IVP PRN (12:25)
[2016-11-27] MEDS ORDERED: ONDANSETRON 4 MG/2 ML VIAL IVP PRN (12:25)
[2016-11-27] MEDS ORDERED: BLOOD GLUCOSE MONITORING 1 DEV DEV FS SCH (13:00)
[2016-11-27 13:10] VITALS: BP 128/78
--- NOTE | 2016-11-27 13:10 | NUR ---
PT BACK FROM PACU IN HOSPITAL BED, REPORT RECEIVED FROM PACU NURSE, PT AWAKE ALERT, RESP EVEN UNLABORED ON ROOM AIR, VSS, RIGHT FOOT WITH BULKY DRESSING CDI, FOOT ELEVATED ON PILLOW, PT C/O PAIN 02/24, WILL MEDICATE, SON AT BEDSIDE, PT REORIENTED TO ROOM AND FLOOR, CALL MOHAN WITHIN REACH WILL CONTINUE TO MONITOR.
[2016-11-27 13:25] VITALS: BP 125/75
[2016-11-27] MEDS: ONDANSETRON 4 MG/2 ML VIAL IVP PRN (15:08)
--- NOTE | 2016-11-27 15:08 | NUR ---
EMESIS X1, CLEAR LIQ, ZOFRAN GIVEN PER ORDER, RESP EVEN UNLABORED, STATES PAIN IS NOW IMPROVED, WILL CONTINUE TO MONITOR.
[2016-11-27 16:00] VITALS: BP 143/77
[2016-11-27] MEDS: VANCOMYCIN 750 MG in DEXTROSE 5% 250 ML IV SCH (16:16)
[2016-11-27] MEDS: INSULIN LISPRO SLIDING SCALE 100 UNITS/ML VIAL SUBQ PRN ×2 (17:10→22:20)
--- NOTE | 2016-11-27 18:20 | NUR ---
PT RESTING QUIETLY IN NAD, RESP EVEN UNLABORED ON ROOM KATHY, DENIES PAIN OR DISCOMFORT, VIVIAN PO WITHOUT VOMITING, DAUGHTER AT BEDSIDE, IVF CONTINUES, SITE CLEAR, CALL MOHAN WITHIN REACH, WILL CONTINUE TO MONITOR.
--- NOTE | 2016-11-27 19:30 | NUR ---
RECEIVED REPORT FROM DAY SHIFT NURSE. PT DAUGHTER AT BEDSIDE. PT AOX4, MALTESE SPEAKING, ABLE TO VERBALIZE NEEDS, RESTING IN BED. PT C/O PAIN, SEE PAIN ASSESSMENT. WILL ADMINISTER PAIN MED ORDERED. PT DENIES CP, SOB OR S/S OF ACUTE DISTRESS. DRESSING TO RIGHT FOOT NOTED, CLEAN DRY AND INTACT. ELEVATED WITH PILLOWS. IV ACCESS ASYMPTOMATIC, PATENT AND INTACT. IVF INFUSING WELL. DISCUSSED AND REVIEWED PLAN OF CARE WITH PT, PT VERBALIZES UNDERSTANDING. SAFETY MEASURES ENSURED. CALL LIGHT WITHIN REACH. WILL CONTINUE TO MONITOR.
--- NOTE | 2016-11-27 19:30 | NUR ---
REPORT GIVEN TO CLOTHING TRADES WORKERS, PT IN STABLE CONDITION
--- NOTE | 2016-11-27 21:45 | NUR ---
IV ZOSYN ADMINISTERED WITH EDUCATION. PT VERBALIZES UNDERSTANDING. IVF INFUSING WELL. ALL NEEDS MET. SAFETY MEASURES ENSURED.
[2016-11-28] VITALS: BP 113/60
--- NOTE | 2016-11-28 00:15 | NUR ---
PATIENT SLEEPING IN BED NO DISTRESS NEEDS MET.
[2016-11-28] MEDS: VANCOMYCIN 750 MG in DEXTROSE 5% 250 ML IV SCH ×4 (00:25→21:30)
[2016-11-28] MEDS: MORPHINE SULFATE 2 MG/ML SYR IVP PRN ×3 (00:25→21:59)
[2016-11-28] MEDS: ONDANSETRON 4 MG/2 ML VIAL IVP PRN (00:38)
[2016-11-28] MEDS: NACL 0.9% 1,000 ML IV SCH ×3 (00:39→21:40)
--- NOTE | 2016-11-28 00:40 | NUR ---
ADMINISTERED IV VANCOMYCIN PER PROTOCOL WITH EDUCATION. PT VERBALIZES UNDERSTANDING. PT TOLERATED WELL. PT C/O PAIN, SEE PAIN ASSESSMENT. ADMINISTERED PAIN MEDICATION ORDERED. PT C/O NAUSEA, EMESIS BAG PROVIDED, ZOFRAN ADMINISTERED. WILL CONTINUE TO MONITOR.
[2016-11-28] MEDS: NACL 0.9% IRR 250 ML BOTTLE IR SCH ×2 (01:00→13:00)
--- NOTE | 2016-11-28 01:00 | NUR ---
WOUND TREATMENT HELD DUE TO S/P R 5TH TOE AMPUTATION. DRESSING CLEAN, DRY AND INTACT. PT SLEEPING AT THIS TIME. ALL NEEDS MET. SAFETY MEASURES ENSURED. CALL LIGHT WITHIN REACH. WILL CONTINUE TO MONITOR.
[2016-11-28] MEDS: PIPER/TAZO 3.375GM/D5W PREMIX 50 ML IV SCH ×3 (05:34→20:25)
--- NOTE | 2016-11-28 05:35 | NUR ---
IVF INFUSING WELL. ALL NEEDS MET. CONDITION STABLE. SAFETY MEASURES ENSURED. CALL LIGHT WITHIN REACH. WILL CONTINUE TO MONITOR.
[2016-11-28] MEDS: BLOOD GLUCOSE MONITORING 1 DEV DEV FS SCH ×4 (06:18→21:29)
[2016-11-28] MEDS: INSULIN LISPRO SLIDING SCALE 100 UNITS/ML VIAL SUBQ PRN ×3 (06:26→16:53)
[2016-11-28 07:16] LABS: BASOPHILS # (AUTO) 0.1 K/uL (0.00-0.22); BASOPHILS % (AUTO) 0.6 % (0.0-2.0); EOSINOPHILS # (AUTO) 0.1 K/uL (0-0.4); EOSINOPHILS % (AUTO) 1.5 % (0.0-4.0); HEMOGLOBIN 11.2 g/dL (12.0-18.0); LYMPHOCYTES # (AUTO) 1.7 K/uL (2.0-11.5); LYMPHOCYTES % (AUTO) 18.5 % (20.5-51.1); MEAN CORPUSCULAR HEMOGLOBIN 31 pg (27-31); MEAN CORPUSCULAR HGB CONC 34 g/dL (33-37); MEAN CORPUSCULAR VOLUME 90 fL (80-94); MONOCYTES # (AUTO) 0.9 K/uL (0.8-1.0); MONOCYTES % (AUTO) 10.3 % (1.7-9.3); NEUTROPHILS # (AUTO) 6.1 K/uL (1.8-7.7); NEUTROPHILS % (AUTO) 69.1 % (42.2-75.2); PLATELET COUNT (AUTO) 693 K/uL (140-450); RED BLOOD CELL COUNT(AUTO) 3.66 MIL/uL (4.20-6.10); RED CELL DISTRIBUTION WIDTH 12.8 % (11.6-13.7); WHITE BLOOD COUNT (AUTO) 8.9 K/uL (4.8-10.8)
--- NOTE | 2016-11-28 07:31 | NUR ---
ENDORSED PLAN OF CARE TO DAY SHIFT NURSE. CONDITION STABLE.
--- NOTE | 2016-11-28 07:32 | NUR ---
REPORT RECEIVED FROM REHANGER, PT AWAKE ALERT X4, RESP EVEN UNLABORED ON ROOM AIR, IV SITE CLEAR, INFUSING WELL, DENIES PAIN OR DISCOMFORT, BULKY DRESSING ON RIGHT FOOT CDI, PLAN OF CARE DISCUSSED, DENIES ANY IMMEDIATE NEEDS, CALL MOHAN WITHIN REACH, BED LOCKED IN LOW POSITION, WILL CONTINUE TO MONITOR.
[2016-11-28 08:00] VITALS: BP 123/80
--- NOTE | 2016-11-28 08:30 | NUR ---
PT SLEEPING QUIETLY IN NAD, VANCO RESULT NOT READY DUE TO MACHINE NOT WORKING PER LAB, WILL HOLD VANCO UNTIL TROPH LEVEL IS RESULTED. CALL BEL WITHIN REACH, BED LOCKED IN LOW POSITION, WILL CONTINUE TO [facility].
[2016-11-28 08:40] LABS: ANION GAP 12.6 (8-16); CALCIUM 8.7 mg/dL (8.5-10.1); CARBON DIOXIDE 29.1 mmol/L (21-32); CREATININE 0.8 mg/dL (0.6-1.3); POTASSIUM 3.7 mmol/L (3.5-5.1)
[2016-11-28] MEDS: ASPIRIN 81 MG TAB.CHEW PO SCH (10:26)
--- NOTE | 2016-11-28 10:29 | NUR ---
PER LAB, MACHINE IS NOT WORKING, VANCOMYCIN TROPH LEVEL RESULT STILL NOT READY. WILL CALL BACK WITH RESULT WHEN MACHINE IS FIXED.
--- NOTE | 2016-11-28 12:30 | NUR ---
DUE ANTIBIOTIC STARTED IV SITE CLEAR, INSULIN 8U FOR BS 308, PT RESTING QUIETLY IN NAD, RESP EVEN UNLABORED, DENIES PAIN OR DISCOMFORT, CALL MOHAN WITHIN REACH, WILL CONTINUE TO MONITOR.
--- NOTE | 2016-11-28 14:01 | NUR ---
PT UP OUT OF BED WITHOUT PROBLEM, SITTING UP IN CHAIR, BED LINEN CHANGED BY NURSING STUDENTS, VANCOMYCIN STARTED, PT DENIES PAIN OR DISCOMFORT, IV SITE CLEAR, PT RETURNED TO BED, URINAL AT BEDSIDE, CALL MOHAN WITHIN REACH, PT DENIES ANY IMMEDIATE NEEDS, WILL CONTINUE TO MONITOR.
[2016-11-28 16:00] VITALS: BP 152/79
[2016-11-28] MEDS: glipiZIDE 10 MG TAB PO SCH (16:51)
[2016-11-28] MEDS: metFORMIN 500 MG TAB PO SCH (16:51)
--- NOTE | 2016-11-28 17:00 | NUR ---
PT SITTING UP IN BED WATCHING SOCCER GAME ON TV, RESP EVEN UNLABORED, SKIN WARM DRY COLOR WNL, RIGHT FOOT DRESSING CDI, DUE MEDS GIVEN, PT DENIES PAIN OR DISCOMFORT, DENIES ANY IMMEDIATE NEEDS, CALL MOHAN WITHIN REACH, BED LOCKED IN LOW POSITION, ALL SAFETY MEASURES IN PLACE, WILL CONTINUE TO MONITOR.
--- NOTE | 2016-11-28 18:24 | NUR ---
PT SON GEO AT BEDSIDE, PLAN OF CARE REGARDING PICC LINE AND POSSIBLE DC HOME WITH HOME HEALTH CARE ARRANGEMENT, ALL QUESTIONS ASKED ANSWERED, UPDATED ADDRESS PROVIDED, CHANGED IN COMPUTER BY ADMISSIONS, PT PT AND SON BOTH VERBALIZED FULL UNDERSTANDING, PT DENIES PAIN OR DISCOMFORT, PT RESTING QUIETLY IN BED, CALL MOHAN WITHIN REACH, BED LOCKED IN LOW POSITION, SIDE RAILS UPX2, WILL CONTINUE TO MONITOR.
--- NOTE | 2016-11-28 19:11 | NUR ---
REPORT GIVEN TO INTERNET SPECIALIST WITH PT IN STABLE CONDITION.
--- NOTE | 2016-11-28 19:12 | NUR ---
PATIENT IS CURRENTLY AWAKE ALERT RESTING IN BED IV INFUSING WELL IV SITE PATENT NO INFILTRATION NOTED.NO COMPLAINS OF PAIN.DRESSING TO RT FOOT IN PLACE.CALL LIGHT WITHIN REACH WILL CONTINUE TO MONITOR.
[2016-11-28 20:00] VITALS: BP 132/71
--- NOTE | 2016-11-28 22:45 | NUR ---
PATIENT WAS GIVEN HIS HS SNACK AND EAT IT.
--- NOTE | 2016-11-29 00:05 | NUR ---
PATIENT IS SLEEPING IN BED NO DISTRESS.
--- NOTE | 2016-11-29 02:35 | NUR ---
PATIENT SLEEPING IN BED NO DISTRESS NO COMPLAINS OF PAIN.
--- NOTE | 2016-11-29 04:09 | NUR ---
PATIENT IS CURRENTLY RESTING IN BED NO COMPLAINS OF PAIN IVF INFUSING WELL WILL CONTINUE TO MONITOR.
[2016-11-29] MEDS: PIPER/TAZO 3.375GM/D5W PREMIX 50 ML IV SCH ×2 (04:21→13:11)
[2016-11-29 04:35] VITALS: BP 129/71
[2016-11-29] MEDS: VANCOMYCIN 750 MG in DEXTROSE 5% 250 ML IV SCH ×2 (05:09→15:00)
--- NOTE | 2016-11-29 05:57 | NUR ---
PATIENT IS CURRENTLY AWAKE RESTING IN BED DENIES PAIN,IVF INFUSING WELL PATIENT HAS SIGNED CONSENT FOR PICC LINE ALREADY AND IS RESTING QUIETLY IN BED.
[2016-11-29] MEDS: BLOOD GLUCOSE MONITORING 1 DEV DEV FS SCH ×3 (06:12→17:23)
[2016-11-29] MEDS: INSULIN LISPRO SLIDING SCALE 100 UNITS/ML VIAL SUBQ PRN ×3 (06:25→17:34)
[2016-11-29 06:28] LABS: ANION GAP 11.7 (8-16); BASOPHILS # (AUTO) 0.1 K/uL (0.00-0.22); BASOPHILS % (AUTO) 0.8 % (0.0-2.0); CALCIUM 8.5 mg/dL (8.5-10.1); CREATININE 0.8 mg/dL (0.6-1.3); EOSINOPHILS # (AUTO) 0.2 K/uL (0-0.4); EOSINOPHILS % (AUTO) 2.9 % (0.0-4.0); HEMATOCRIT 32.7 % (36-52); LYMPHOCYTES # (AUTO) 1.7 K/uL (2.0-11.5); LYMPHOCYTES % (AUTO) 26.2 % (20.5-51.1); MEAN CORPUSCULAR HEMOGLOBIN 30 pg (27-31); MEAN CORPUSCULAR HGB CONC 34 g/dL (33-37); MEAN CORPUSCULAR VOLUME 91 fL (80-94); MONOCYTES # (AUTO) 0.6 K/uL (0.8-1.0); MONOCYTES % (AUTO) 9.4 % (1.7-9.3); NEUTROPHILS % (AUTO) 60.7 % (42.2-75.2); PLATELET COUNT (AUTO) 720 K/uL (140-450); POTASSIUM 3.7 mmol/L (3.5-5.1); RED BLOOD CELL COUNT(AUTO) 3.61 MIL/uL (4.20-6.10); RED CELL DISTRIBUTION WIDTH 12.9 % (11.6-13.7); WHITE BLOOD COUNT (AUTO) 6.6 K/uL (4.8-10.8)
[2016-11-29 06:31] LABS: INR 1.2 (0.8-1.2); PARTIAL THROMBOPLASTIN TIME 27.6 secs (22-35.6); PROTHROMBIN TIME 10.9 secs (10.8-13.4)
--- NOTE | 2016-11-29 06:57 | NUR ---
PATIENT IS CURRENTLY RESTING IN BED NO DISTRESS NO COMPLAINS OF PAIN.IVF INFUSING WELL.
--- NOTE | 2016-11-29 07:05 | NUR ---
RECEIVED REPORT FROM NIGHT NURSE AT BEDSIDE. PT IS AAOX4. PT IS ON ROOM AIR AND SHOWS NO S/S OF DISTRESS. SKIN IS INTACT. PT VERBALIZED NO SOB OR PAIN. NOTED CLEAN DRY AND INTACT DRESSING TO THE RIGHT FOOT. RIGHT FA WITH IV FLUIDS RUNNING PATENT AND INTACT. BED LOWERED WITH CALL LIGHT WITHIN REACH.
--- NOTE | 2016-11-29 07:35 | NUR ---
REPORT ENDORSED TO SHIRLEY ZULETA AT BEDSIDE SHE WILL RESUME CARE.
[2016-11-29] MEDS: metFORMIN 500 MG TAB PO SCH ×2 (07:37→17:15)
[2016-11-29] MEDS: glipiZIDE 10 MG TAB PO SCH ×2 (07:37→17:15)
--- NOTE | 2016-11-29 08:00 | NUR ---
ADMINISTERED SCHEDULED MEDICATIONS PT TOLERATED WELL. PT SHOWS NO S/S OF DISTRESS.
--- NOTE | 2016-11-29 09:00 | NUR ---
MICHELE LIRIANO REGARDING WOUND CARE DRESSING CHANGE. WILL WAIT FOR CALL BACK.
--- NOTE | 2016-11-29 09:00 | NUR ---
JESSICA PICC LINE NURSE ARRIVED ON UNIT TO SEE PT
--- NOTE | 2016-11-29 09:00 | NUR ---
PT IN BED SLEEPING. SHOWS NO S/S OF DISTRESS NOTED. PT IS NPO FOR PROCEDURE. NO MEDICATIONS WERE ADMINISTERED. Addendum: 11/29/16 at 1120 by Gail Membreno RN WRONG PT
--- NOTE | 2016-11-29 09:15 | NUR ---
DR LIRIANO CALLED BACK. RECEIVED ORDERS.
--- NOTE | 2016-11-29 09:52 | NUR ---
PT LEFT UNIT FOR PROCEDURE. PT LEFT IN STABLE CONDITION. Addendum: 11/29/16 at 1124 by Gail Membreno RN WRONG PT
[2016-11-29] MEDS ORDERED: VANC750F IV (09:55)
[2016-11-29] MEDS ORDERED: CLIN300C2 PO (09:55)
[2016-11-29] MEDS ORDERED: ACET-9525 PO (09:56)
--- NOTE | 2016-11-29 10:00 | NUR ---
PT SHOWS NO S/S OF DISTRESS NOTED. PT HAS L UPPER ARM PICC LINE.
[2016-11-29] MEDS: ASPIRIN 81 MG TAB.CHEW PO SCH (10:36)
--- NOTE | 2016-11-29 10:47 | NUR ---
PT ARRIVED BACK ON UNIT. PT BP 117/69, HR 102, SAT O2% 97% ON RA, RESPIRATIONS 18. PT IS SLEEPING AND SHOWS NO S/S OF DISTRESS. Addendum: 11/29/16 at 1125 by Gail Membreno RN WRONG PT
--- NOTE | 2016-11-29 11:30 | NUR ---
PAGED DR LIRIANO TO RECEIVED ORDERS FOR WOUND CARE TREATMENT. WILL WAIT FOR CALL BACK.
--- NOTE | 2016-11-29 11:30 | NUR ---
EMPTIED PT'S URINAL. PT SHOWS NO S/S OF DISTRESS NOTED.
--- NOTE | 2016-11-29 12:23 | NUR ---
PAGED DR. LIRIANO REGARDING PT'S WOUND DRESSING INSTRUCTIONS FOR HOME HEALTH AND ALSO PAGED THE EXCHANGE WITH SAME MATTER. AWAITING FOR CALL BACK.
--- NOTE | 2016-11-29 12:45 | NUR ---
CLARISA NOTE CONCURRENT REVIEW SENT TO [facility] FAX# [phone] TARAN PH# [phone]. RECEIVED ORDER FOR IV ANTIBIOTIC AND HOME HEALTH FOR WOUND CARE. SPOKE WITH CLARISA CHIRINOS AND SHE SAID WE CAN USE [facility] AND [facility]. SPOKE WITH PATIENT'S DAUGHTER ADELA HUNTER PH# [phone] AND SHE CONFIRMED THAT PATIENT WILL BE GOING TO HIS BROTHER'S HOUSE, [place], WHEN DISCHARGED: [address] [place] [address]. SPOKE WITH JANES OF [facility] PH# [phone] AND FAXED THEM THE ORDER FAX# [phone] AND CASSY CONFIRMED THEY WILL BE DELIVERING AND PROVIDING THE NURSING FOR PATIENT'S IV ANTIBIOTIC FOR HOME TO START ON 11/30/16. VANCOMYCIN IV DOSAGE FOR 11/29/16 WILL BE ADMINISTERED IN THE HOSPITAL BEFORE THE PATIENT IS DISCHARGED TO HOME. SPOKE WITH DIEUDONNE OF [facility] AND FAXED THE ORDER TO FAX# [phone]. PER DIEUDONNE, [facility] WILL BE PROVIDING THE HOME HEALTH FOR WOUND CARE TO START WHEN THE PATIENT IS DISCHARGED. [facility] CLARISA CHIRINOS AND CHARGE NURSE VELIA LYNCH EXT [phone].
--- NOTE | 2016-11-29 12:51 | NUR ---
11/29/16 RD FOLLOW-UP ASSESSMENT COMPLETED PLEASE REFER TO NUTRITION ASSESSMENT UNDER CARE ACTIVITY FOR ESTIMATED NUTRITIONAL NEEDS. 1. CONTINUE 70 GM CONSISTENT CARBOHYDRATE DIET 2. RECOMMEND VITAMIN C SUPPLEMENT ([id number] MG/DAILY) 3. RD TO FOLLOW-UP 2-3 DAYS; HIGH RISK ALDEN JORDAN, RD
--- NOTE | 2016-11-29 13:15 | NUR ---
PT IS ROOM SITTING AT BEDSIDE CHAIR. PT SHOWS NO S/S OF DISTRESS. PT DENIES PAIN.
[2016-11-29] MEDS: NACL 0.9% 1,000 ML IV SCH (14:23)
--- NOTE | 2016-11-29 14:49 | NUR ---
PAGED DR. OVALLE AGAIN AND SPOKE WITH BRANDON FROM [facility] TO FOLLOW UP WITH TYPE OF WOUND CARE DRESSING FOR HOME HEALTH. AWAITING FOR CALL BACK.
--- NOTE | 2016-11-29 15:00 | NUR ---
PT IN BED AND SHOWS NO S/S OF DISTRESS. PT DENIES PAIN.
[2016-11-29 16:00] VITALS: BP 128/76
--- NOTE | 2016-11-29 16:00 | NUR ---
PT TOLERATED DRESSING CHANGED WELL. PT DENIES PAIN AT WOUND SITE.
--- NOTE | 2016-11-29 16:00 | NUR ---
DRESSING CHANGED PER MD ORDERS.
--- NOTE | 2016-11-29 17:35 | NUR ---
PT HAS BEEN DISCHARGED. ALL DISCHARGE INSTRUCTIONS, PRESCRIPTION, AND PAPERWORK SIGNED. ALL QUESTIONS ANSWERED. ALL BELONGINGS AND PRESCRIPTIONS IN PT POSSESSION. IV DISCONTINUED WITH CANNULA INTACT. WRISTBANDS REMOVED. PT LEFT UNIT IN WHEELCHAIR WITH FAMILY PRESENT AT SIDE. PT LEFT IN STABLE CONDITION.
== END 2016-11-29 17:35 | disposition home health service (06) | DRG 167 ==
LOC: MED 15:47 → MTU 20:28
PROVIDERS: ADMIT Hospitalist; ATTEND Hospitalist
PROC: 0Y6X0Z0 Detachment at Right 5th Toe, Complete, Open Approach (ICD-10-PCS; principal; 2016-11-27 11:00)
PROC: 0JBQ0ZZ Excision of Right Foot Subcutaneous Tissue and Fascia, Open Approach (ICD-10-PCS; 2016-11-27 11:00)
PROC: B244ZZZ Ultrasonography of Right Heart (ICD-10-PCS; 2016-11-29)
PROC: 02H633Z Insertion of Infusion Device into Right Atrium, Percutaneous Approach (ICD-10-PCS; 2016-11-29)
DX: E11.52 Type 2 diabetes mellitus with diabetic peripheral angiopathy with gangrene (principal); E11.621 Type 2 diabetes mellitus with foot ulcer; M86.8X7 Other osteomyelitis, ankle and foot; E44.1 Mild protein-calorie malnutrition; L97.519 Non-pressure chronic ulcer of other part of right foot with unspecified severity; E11.628 Type 2 diabetes mellitus with other skin complications; L08.9 Local infection of the skin and subcutaneous tissue, unspecified; E11.69 Type 2 diabetes mellitus with other specified complication; Z79.899 Other long term (current) drug therapy; Z68.24 Body mass index [BMI] 24.0-24.9, adult
CPT/HCPCS: 36415; 71010; 73630; 80048; 80053; 80202; 82948; 85025; 85610; 85651; 85730; 86140; 87081; 96374; 96375; 99285; C1751; J1170; J1815; J2001; J2250; J2270; J2405; J2543; J3370; J3490; J7030; J7060; Q0092

== ENCOUNTER 2017-01-02 22:47 | Emergency (ER) | payer OTHER ==
[~2017-01-02] VITALS: Ht 157.5 cm; Wt 60.8 kg
[~2017-01-02 22:47] MED LIST changes: +CLIN300C2 PO; -LOV40I SUBQ; +VANC750F IV; -ZOS3.375I IV
[2017-01-02 23:10] VITALS: BP 120/76
--- NOTE | 2017-01-02 23:46 | NUR ---
PT TAKEN TO OF
--- NOTE | 2017-01-02 23:48 | NUR ---
Dr. Grimaldo evaluating patient
[2017-01-02 23:54] VITALS: BP 120/76
--- NOTE | 2017-01-02 23:54 | NUR ---
Patient discharged with v/s stable. Written and verbal after care instructions given and explained, BY DR. BELTRE. Patient alert, oriented and verbalized understanding of instructions. Ambulatory with steady gait. All questions addressed prior to discharge. ID band removed. Patient advised to follow up with PMD. Rx of KEFLEX given. Patient educated on indication of medication including possible reaction and side effects. Opportunity to ask questions provided and answered.
== END 2017-01-02 23:54 | disposition home or self-care (01) ==
LOC: MED 22:47
DX: E11.621 Type 2 diabetes mellitus with foot ulcer (principal); L97.519 Non-pressure chronic ulcer of other part of right foot with unspecified severity; T82.898A Other specified complication of vascular prosthetic devices, implants and grafts, initial encounter; E11.9 Type 2 diabetes mellitus without complications
CPT/HCPCS: 99283

== ENCOUNTER 2020-06-22 04:52 | Emergency (ER) | payer SELFPAY ==
[~2020-06-22] VITALS: Ht 154.9 cm; Wt 62.6 kg
[~2020-06-22 04:52] MED LIST changes: +ASPI-1822 PO; -ASPI81CT89 PO
[2020-06-22 04:58] VITALS: BP 154/94
--- NOTE | 2020-06-22 05:10 | NUR ---
PT AMBUALTED TO BED 12 WITH STEADY GAIT.
--- NOTE | 2020-06-22 05:15 | NUR ---
PT 49 Y/O MALE BIB SELF FOR C/O WOUND CHECK OF R FOOT WOUND X 4 MONTHS. PER PT WOUND APPERED ON R LATERAL PLANTAR OF FOOT. WOUND IS QUARTER SIZED ROUND, WITH RED EDGES. NO DRAINAGE NOTED. PT DENIES PAIN AT SITE. PT STATES HE ALSO HAS C/O ABD CRAMPING WITH DIARRHEA X 2 MONTHS. PT DENIES HAVING A PRIMARY CARE DOCTOR. PT RESPIRATIONS ARE EVEN AND UNLABORED. SKIN IS WARM AND DRY TO TOUCH. PT AFEBRILE. DENIES SOB. COUGH. BED LOCKED AND IN LOWEST POSITION. MEDHX: DMTYPE II ALLERGIES: NKA
--- NOTE | 2020-06-22 05:16 | NUR ---
ERMD AT BEDSIDE. EVALUATING PATIENT.
--- NOTE | 2020-06-22 05:23 | NUR ---
PT AMBUALTED TO RESTROOM WITH STEADY GAIT.
[2020-06-22] MEDS ORDERED: NACL 0.9% 1,000 ML IV ONE (05:25)
--- NOTE | 2020-06-22 05:39 | NUR ---
IV PLACED IN L AC 20G. SITE IS PATENT WITH BLOOD RETURN. NO C/O PAIN AT THE SITE. LABS DRWAN AND COLLECTED. LABS TAKEN TO LABORATORY.
--- NOTE | 2020-06-22 05:43 | NUR ---
XRAY AT BEDSIDE.
[2020-06-22 06:27] LABS: BASOPHILS % (AUTO) 0.2 % (0.0-2.0); HEMATOCRIT 43.8 % (36-52); HEMOGLOBIN 15.1 g/dL (12.0-18.0); LYMPHOCYTES # (AUTO) 1.3 K/uL (2.0-11.5); LYMPHOCYTES % (AUTO) 15.7 % (20.5-51.1); MEAN CORPUSCULAR HEMOGLOBIN 31 pg (27-31); MEAN CORPUSCULAR HGB CONC 34 g/dL (33-37); MEAN CORPUSCULAR VOLUME 89.9 fL (80-94); MONOCYTES # (AUTO) 0.6 K/uL (0.8-1.0); MONOCYTES % (AUTO) 7.4 % (1.7-9.3); NEUTROPHILS # (AUTO) 6.5 K/uL (1.8-7.7); NEUTROPHILS % (AUTO) 76.7 % (42.2-75.2); PLATELET COUNT (AUTO) 391 K/uL (140-450); RED BLOOD CELL COUNT(AUTO) 4.87 MIL/uL (4.20-6.10); RED CELL DISTRIBUTION WIDTH 13.7 % (11.6-13.7); WHITE BLOOD COUNT (AUTO) 8.5 K/uL (4.8-10.8)
[2020-06-22 06:43] LABS: ALBUMIN 3.5 g/dL (3.4-5.0); ANION GAP 9.6 (8-16); CARBON DIOXIDE 27.6 mmol/L (21-32); POTASSIUM 4.2 mmol/L (3.5-5.1); TOTAL BILIRUBIN 0.5 mg/dL (0.0-1.0)
--- NOTE | 2020-06-22 07:29 | NUR ---
IV removed, catheter intact and site benign. Applied folded 2X2 gauze and tape to stop bleeding.
[2020-06-22 07:30] VITALS: BP 145/90
--- NOTE | 2020-06-22 07:30 | NUR ---
Patient discharged with v/s stable. Written and verbal after care instructions given and explained, translated in [place] by myself. Patient alert, oriented and verbalized understanding of instructions. Ambulatory with steady gait. All questions addressed prior to discharge. ID band removed. Patient advised to follow up with PMD and get a referral to podiatry. On d/c instructions there were 2 referrals of podiatry that were highlighted for the patient and instructed to call tomorrow morning, verify if they take his insurance and schedule an appointment. Pt also given a referral to [facility] for follow up. Rx of Augmentin 875mg given. Patient educated on indication of medication including possible reaction and side effects. Pt instructed to complete the abx treatment for 10 days. Opportunity to ask questions provided and answered.
--- NOTE | 2020-06-23 14:33 | NUR ---
Spoke to patients son regarding father. Was informed that patient needs to return to ER for futher evaluation.
== END 2020-06-22 07:30 | disposition home or self-care (01) ==
LOC: MED 04:52
DX: E11.621 Type 2 diabetes mellitus with foot ulcer (principal); L97.519 Non-pressure chronic ulcer of other part of right foot with unspecified severity; Z79.84 Long term (current) use of oral hypoglycemic drugs; Z79.82 Long term (current) use of aspirin; Z79.899 Other long term (current) drug therapy
CPT/HCPCS: 36415; 73630; 80053; 82009; 85025; 85651; 86140; 96360; 96361; 99284; J7030